=== PATIENT | male | born 2000 | race Caucasian/White ===

== ENCOUNTER 2021-09-05 14:09 | Outpatient (REF) | payer BC, SELFPAY ==
[2021-09-06 18:09] LABS: COVID-19 RT-PCR UVMMC Result Negative (Negative)
== END 2021-09-05 14:10 | disposition home or self-care (01) ==
LOC: LBN 14:09
PROVIDERS: PCP Nurse Practitioner Family; Visit Provider Nurse Practitioner Family
DX: Z20.822 Contact with and (suspected) exposure to COVID-19 (principal)
CPT/HCPCS: U0003

== ENCOUNTER 2021-12-30 01:36 | Emergency (ER) | payer BC, SELFPAY ==
[2021-12-30 01:43] VITALS: BP 142/104; PULSE 92; RESP 18; TEMP 36.1; O2SAT 99
--- NOTE | 2021-12-30 03:00 | W.ED.GENAD ---
Discharge Plan Disposition Patient Disposition: HOME Condition: Stable Discharge Details Clinical Impression: Difficulty sleeping, Anxiety Primary Care Provider: Garry Delgado ED Provider: Tashi Montoya Home Meds and New Rx's Prescriptions: Continued ibuprofen 800 mg tablet 800 mg PO TID PRN (Reason: pain) Qty: 30 0RF Discharge Instructions Additional Instructions: follow up with your primary care provider within 1-2 weeks do not drink alcohol if you take the lorazepam. You can take one at bedtime as needed for anxiety/difficulty sleepin if you feel more ill, have difficulty breathing or severe pain return to the emergency department Stand Alone Forms: Work Release Medical Decision Making 21 yo male who denies chronic medical problems comes in with cc of feeling anxious and not being able to sleep for the past two nights. He says he has had increased stress with college and last night was unable to sleep all night because his mind kept racing. He then again went to bed tonight and his mind starting racing and he started pacing aroud the room because he was feeling anxious and began to breathe fast. Denies any chest pain, fevers, chills, alcohol or drug use. Denies si/hi or depression. He arrives stable, sitting in no distress though appears mildly anxious on exam. He has no focal neuro deficits, CN II-XII intact and clear speech. HIs symptoms seem consistent with anxiety/panic attack and likely compounded by not sleeping, given reassuring exam and vitals do not suspect underlying medical cause for his symptoms such as infectious or endocrine abnormality. Will treat with po ativan and reassess. pt feeling much better requesting d/c. Feel this is reasonable and will provide 3 tabs in case he has trouble sleeping the next few nights until he can see his pcp to discuss further treatment of his anxiety and difficulty sleeping. Differential Diagnosis Differential Diagnosis: anxiety, insomnia HPI General Mode of arrival: ambulatory. Date/Time Provider Initiated Documentation: 12/30/21 01:38. Limitations to Documentation: no limitations. Information obtained by: patient. History of Present Illness 21 year old M presents to the emergency department with the chief complaint of anxious, not sleeping, described as moderate, Patient started experiencing this day(s) (2) and it has been constant. improves with No relieving factors improve symptom(s), No exacerbating factors reported . Patient notes no other symptoms.. Patient did receive the following treatments prior to arrival, none Related Data Home Medications Medication Instructions Recorded Confirmed ibuprofen 800 mg tablet 800 mg PO TID PRN #30 tab 01/31/21 12/30/21 Previous Rx's Medication Instructions Recorded ibuprofen 800 mg tablet 800 mg PO TID PRN #30 tab 01/31/21 Allergies Allergy/AdvReac Type Severity Reaction Status Date / Time cephalexin Allergy Intermediate rash and Verified 12/30/21 01:53 hives hepatitis A virus vaccine Allergy Unknown Skin Rash Verified 12/30/21 01:53 HPV Quardrivalent Allergy Unknown Hives Uncoded 12/30/21 01:53 General Stated Complaint: GenMedical BAILEE: 4 Review of Systems All systems reviewed & are unremarkable except as noted in HPI and below Constitutional Constitutional: Denies chills, Denies fever(s) and Denies weakness Eyes Eyes: Denies loss of vision Cardiovascular Cardiovascular: Denies chest pain and Denies dyspnea Respiratory Respiratory: Denies cough and Denies dyspnea Gastrointestinal Gastrointestinal: Denies abdominal pain, Denies nausea and Denies vomiting Integumentary/Breasts Skin/Breast: Denies rash Neurologic Neurologic: Denies loss of vision and Denies weakness Psychiatric Psychiatric: Denies depression Endocrine Endocrine: Denies cold intolerance and Denies heat intolerance PFSH All Active Problems (Updated 12/30/21 @ 03:40 by Tashi Montoya MD) Difficulty sleeping (Acute) Anxiety (Chronic) Back pain (Acute) Diarrhea (Acute) Scoliosis (Acute) MANI positive (Acute) Medical History (Updated 12/30/21 @ 03:40 by Tashi Montoya MD) Low back strain (~03/01/19) L Lumbar muscle hypertrophy Surgical History (Updated 11/13/20 @ 18:35 by Barb Ramírez) Hx of circumcision Social History (Updated 10/30/20 @ 09:28 by Kym Max) Smoking/Tobacco Use Status: Never Second Hand Exposure: Yes Smoking risk assessment performed?: Yes Alcohol Intake: current Alcohol Intake frequency: a few times a month Alcohol type: hard liquor Drug use: Current Sobriety Substance use type: marijuana Details: No Pot since summer Caregiver/Support person: No Household members: family Housing: house Communication Needs: None Do you need help understanding health information?: Rarely Pets and animals: Yes Pets and animals: cat(s) Sexually active: No Current gender identity: male What is your relationship status?: never How often do you talk on the phone with friends or family?: three or more times per week How often do you get together with friends or relatives?: never Do you belong to any clubs or organized social groups?: no Panel score (0-1 are the most socially isolated patients): 1 What type of physical activity do you participate in: weight lifting Duration: 45-60 minutes/day Frequency: 3-4 times per week Giuliana/Anabaptist: None Seatbelt use: always Helmet use: Yes Helmet use: always 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 Do you feel safe at home: Yes Do you feel safe in your relationship?: Yes Victim of physical abuse: No Victim of emotional abuse: No Victim of sexual abuse: No Would you like helpful sources: No Exam Const General: no acute distress Orientation: alert HENMT Head: normal to inspection Ears: external ears normal General nose exam: external nose normal Mouth: moist mucous membranes Eyes General: appearance normal, both eyes and all related structures Neck Neck: normal visual inspection Resp Effort & Inspection: normal respiratory effort and able to speak in complete sentences Cardio Rate: regular rate Skin General skin exam: no rashes or lesions noted Neuro General: patient alert and patient oriented x3 Extrem General: normal to inspection Psych Mental Status: mental status grossly normal Course Vital Signs Vital signs: Vital Signs Temperature 36.1 C L 12/30/21 01:43 Pulse 92 H 12/30/21 01:43 Respiratory Rate 18 12/30/21 01:43 Blood Pressure 142/104 H 12/30/21 01:43 Pulse Oximetry 99 12/30/21 01:43 Temperature 36.1 C L 12/30/21 01:43 Temperature Source Skin 12/30/21 01:43 Pulse 92 H 12/30/21 01:43 Respiratory Rate 18 12/30/21 01:43 Respiratory Effort Non-Labored 12/30/21 01:54 Blood Pressure 142/104 H 12/30/21 01:43 Blood Pressure Position Sitting 12/30/21 01:43 Pulse Oximetry 99 12/30/21 01:43 Oxygen Delivery Method Room Air 12/30/21 01:43 Oxygen Flow Rate 0 12/30/21 01:43 Pain Level 0 12/30/21 01:43
[2021-12-30] MEDS: LORazepam 1 MG TAB PO (03:07)
[2021-12-30 03:08] VITALS: BP 127/99; PULSE 86; RESP 16; O2SAT 96
[2021-12-30 03:50] VITALS: BP 125/52
[2021-12-30] MEDS: LORazepam 1 MG TAB 3 MG PO (03:50)
== END 2021-12-30 03:52 | disposition home or self-care (01) ==
PROVIDERS: Emergency Provider Emergency Medicine; PCP Nurse Practitioner Family
DX: G47.09 Other insomnia (principal); F41.9 Anxiety disorder, unspecified
CPT/HCPCS: 99283

== ENCOUNTER 2022-02-25 03:13 | Emergency (ER) | payer BC, SELFPAY ==
[2022-02-25 03:17] VITALS: BP 129/94; PULSE 89; RESP 19; TEMP 36.5; O2SAT 99
--- NOTE | 2022-02-25 03:36 | W.ED.GENAD ---
Discharge Plan Disposition Patient Disposition: HOME Condition: Improving Discharge Details Clinical Impression: Cough, Acute viral syndrome Primary Care Provider: Garry Delgado ED Provider: Rickie Montaño Home Meds and New Rx's Prescriptions: New benzonatate 100 mg capsule 100 mg PO BID PRN (Reason: cough) 3 Days Qty: 6 0RF No Action ibuprofen 800 mg tablet 800 mg PO TID PRN (Reason: pain) Qty: 30 0RF sertraline 25 mg tablet 25 mg PO DAILY Qty: 30 0RF Discharge Instructions Instructions: Acute Cough (ED) Additional Instructions: Ensure the stay hydrated at home. Treat fevers and body aches with ibuprofen and acetaminophen if they develop. Return to the emergency department for worsening symptomatology such as shortness of breath productive cough fevers chills uncontrolled nausea or vomiting Medical Decision Making 21-year-old male presents with 1 day of dry cough, nonproductive, sick contacts at home, afebrile nontoxic not hypoxic, speaking full sentences, lungs clear bilaterally, likely viral upper respiratory infection versus less likely bacterial pneumonia versus allergies. Low suspicion for ACS CHF PE or aortic pathology. Dexamethasone Tessalon Perles albuterol ipratropium Home care instructions and return precautions given. HPI General Date/Time Provider Initiated Documentation: 02/25/22 03:28. HPI Narrative: 21-year-old male presents with 1 day of dry cough, sick contact friend at home tested negative for COVID, nonproductive cough, denies fevers chills nausea vomiting or other systemic symptoms. Related Data Home Medications Medication Instructions Recorded Confirmed ibuprofen 800 mg tablet 800 mg PO TID PRN #30 tab 01/31/21 02/25/22 sertraline 25 mg tablet 25 mg PO DAILY #30 tab 01/30/22 02/25/22 benzonatate 100 mg capsule 100 mg PO BID PRN 3 Days #6 cap 02/25/22 Previous Rx's Medication Instructions Recorded ibuprofen 800 mg tablet 800 mg PO TID PRN #30 tab 01/31/21 sertraline 25 mg tablet 25 mg PO DAILY #30 tab 01/30/22 benzonatate 100 mg capsule 100 mg PO BID PRN 3 Days #6 cap 02/25/22 Allergies Allergy/AdvReac Type Severity Reaction Status Date / Time cephalexin Allergy Intermediate rash and Verified 02/25/22 03:20 hives hepatitis A virus vaccine Allergy Unknown Skin Rash Verified 02/25/22 03:20 HPV Quardrivalent Allergy Unknown Hives Uncoded 02/25/22 03:20 General Stated Complaint: RespSymp BAILEE: 3 Review of Systems Narrative: Review of Systems Constitutional: negative Eyes: negative ENT: negative Cardiovascular: negative Respiratory: Cough Gastrointestinal: negative : negative Musculoskeletal: negative Skin: negative Neurologic: negative Psych: negative PFSH All Active Problems (Updated 02/25/22 @ 03:39 by Rickie Montaño MD) Cough (Acute) Acute viral syndrome (Acute) Back pain (Acute) Diarrhea (Acute) Scoliosis (Acute) MANI positive (Acute) Medical History (Updated 02/25/22 @ 03:39 by Rickie Montaño MD) Low back strain (~03/01/19) L Lumbar muscle hypertrophy Surgical History (Updated 11/13/20 @ 18:35 by Barb Ramírez) Hx of circumcision Social History (Updated 10/30/20 @ 09:28 by Kym Max) Smoking/Tobacco Use Status: Never Second Hand Exposure: Yes Smoking risk assessment performed?: Yes Alcohol Intake: current Alcohol Intake frequency: a few times a month Alcohol type: hard liquor Drug use: Current Sobriety Substance use type: marijuana Details: No Pot since summer Caregiver/Support person: No Household members: family Housing: house Communication Needs: None Do you need help understanding health information?: Rarely Pets and animals: Yes Pets and animals: cat(s) Sexually active: No Current gender identity: male What is your relationship status?: never How often do you talk on the phone with friends or family?: three or more times per week How often do you get together with friends or relatives?: never Do you belong to any clubs or organized social groups?: no Panel score (0-1 are the most socially isolated patients): 1 What type of physical activity do you participate in: weight lifting Duration: 45-60 minutes/day Frequency: 3-4 times per week Giuliana/Cheondoism: None Seatbelt use: always Helmet use: Yes Helmet use: always Drive intox or ride w/intox 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 Do you feel safe at home: Yes Do you feel safe in your relationship?: Yes Victim of physical abuse: No Victim of emotional abuse: No Victim of sexual abuse: No Would you like helpful sources: No Exam Narrative Exam Narrative: Physical Examination General: alert, awake, cooperative, resting comfortably, no acute distress HEENT: normocephalic, atraumatic; PERRL, EOM intact, conjunctiva normal; no nasal discharge; moist mucous membranes, oral and pharyngeal mucosa normal, tolerating secretions Neck: supple, trachea midline; full ROM Chest: normal to inspection Respiratory: Dry cough; normal respiratory effort, speaking in full sentences, clear to auscultation, no wheezing, rales or rhonchi Cardiac: regular rate, regular rhythm, S1S2 intact, no murmurs rubs or gallops GI: abdomen soft, non-tender, non-distended; no palpable mass or hepatosplenomegaly Skin: no lesions, rashes or trauma appreciated Neuro: AAOx3, normal speech, moving all extremities Psych: Appropriate mood and affect Course Vital Signs Vital signs: Vital Signs Temperature 36.5 C 02/25/22 03:17 Pulse 89 02/25/22 03:17 Respiratory Rate 19 02/25/22 03:17 Blood Pressure 129/94 H 02/25/22 03:17 Pulse Oximetry 99 02/25/22 03:17 Temperature 36.5 C 02/25/22 03:17 Temperature Source Tympanic 02/25/22 03:17 Pulse 89 02/25/22 03:17 Respiratory Rate 19 02/25/22 03:17 Respiratory Effort 02/25/22 03:28 Respiratory Depth Normal 02/25/22 03:28 Blood Pressure 129/94 H 02/25/22 03:17 Blood Pressure Position Sitting 02/25/22 03:17 Pulse Oximetry 99 02/25/22 03:17 Oxygen Delivery Method Room Air 02/25/22 03:17 Oxygen Flow Rate 0 02/25/22 03:17 Pain Level 0 02/25/22 03:17
[2022-02-25] MEDS: Albuterol/Ipratropium 3 ML UPD VIAL UPD (03:42)
[2022-02-25] MEDS: Dexamethasone 10 MG/ML VIAL IVP (03:43)
[2022-02-25] MEDS: Benzonatate 100 MG CAP PO (03:43)
[2022-02-25 04:05] VITALS: BP 126/87; PULSE 73; RESP 18; O2SAT 99
[2022-02-26 13:29] LABS: COVID-19 RT-PCR UVMMC Result Negative (Negative)
== END 2022-02-25 04:12 | disposition home or self-care (01) ==
PROVIDERS: Emergency Provider Emergency Medicine; PCP Nurse Practitioner Family
DX: B34.9 Viral infection, unspecified (principal); R05.1 Acute cough; Z20.822 Contact with and (suspected) exposure to COVID-19
CPT/HCPCS: 94640; 96374; 99283; U0003; J1100; J7620

== ENCOUNTER 2022-02-26 01:32 | Emergency (ER) | payer BC, SELFPAY ==
--- OUTSIDE RECORDS SUMMARY | 2022-02-26 01:35 | XMS_ITS | Encounter Summary ---
:2000 Author Organization [facility] Address [address] [place] [address] Care Team Providers Name Role Phone Wesley Seymour MD Primary Care Provider Encounter Details Date Type Department Care Team Description 02/25/2019 Hospital Encounter [facility] Terell Barry, [place] back [address] [place] [id number] [place] [phone] [address] [place] [address] (Wo rk) Social History Tobacco Use Types Packs/Day Years Used Date Never Assessed Sex Assigned at Date Recorded Not on file documented as of this encounter Plan of Treatment Not on filedocumented as of this encounter Procedures Procedure Name Priority Date/Time Associated Comments Diagnosis US EXTREMITY Routine 02/25/2019 3:07 Mass on back Results for this NONVASCULAR LIMITED PM EDT procedur e are in LEFT the results section. documented in this encounter Results US Extremity [facility] Left (02/25/2019 3:07 PM EDT) Anatomical Region Laterality Modality Ultrasound Specimen (Source) Anatomical Location Collection Method / Collectio n Time Received Time / Laterality Volume Impressions 02/25/2019 3:10 PM EDT IMPRESSION: Asymmetry of the paraspinal muscles with the left more prominent than the right. Please correlate for scoliosis. If desired, MRI could be pursued for further assessment. RADCAT Grade:RADCAT2: Routine result. Signing Doctor: Myke Smith MD ?Date Signed:02/25/2019 3:10 PM Patient ?Ac cession Number:[id number] DOS:02/25/2019 2:31 PM ?Exam: [id number] US EXTREMITY NONVASCULAR LIMITED LEFT Narrative 02/25/2019 3:10 PM EDT HISTORY: Abnormal physical exam findings; prominent soft tissues of the left paraspinal region. TECHNIQUE: Nonvascular sonography of the left extremity. Notably, the examination was tailored to assess the region of concern in the paraspinal region at the level of the thoracolumbar junction. COMPARISON: None. FINDINGS: The left paraspinal muscles are slightly larger than the right without discernible mass, collection or abnormal echogenicity. Procedure Note Myke Smith MD - 02/25/2019Form atting of this note might be different from the original. HISTORY: Abnormal physical exam findings ; prominent soft tissues of the left paraspinal region. TECHNIQUE: Nonvascular sonography of the left extremity. Notably, the examination was tailored to assess the region of concern in the paraspinal region at the level of the thoracolumbar junction. COMPARISON: None. FINDINGS: The left paraspinal muscles are slightly larger than the right without discernible mass, collection or abnormal echogenicity. IMPRESSION: Asymmetry of the paraspinal muscles with the left more prominent than the right. Please correlate for scoliosis. If desired, MRI could be pursued for further assessment. RADCAT Grade:RADCAT2: Routine result. Signing Doctor: Myke Smith MD Date Signed:02/25/2019 3:10 PM Patient Accessi on Number:[id number] DOS:02/25/2019 2:31 PM Exam:[id number] US EXTREMITY NONVASCULAR LIMITED LEFT Terell Seymour MD [facility] ORDERABLES documented in this encounter Visit Diagnoses Diagnosis Mass on back Localized superficial swelling, mass, or lump documented in this encounter Care Teams Ncr Operator Relationship Specialty Start Date End Date Terell Seymour MD PCP - General Pediatrics 08/29/17 [address] [facility] [address] [place] [address] documented as of this encounter
--- OUTSIDE RECORDS SUMMARY | 2022-02-26 01:35 | XMS_ITS | Encounter Summary ---
:2000 Author Organization [facility] Address [address] [id number] Care Team Providers Name Role Phone Wesley Seymour MD Primary Care Provider Encounter Details Date Type Department Care Team Description 08/29/2017 Hospital Encounter [facility] Terell Seymour Family history of diseases o f the blood and blood-forming organs and certain disorders involving the immune mechanism (Primary Dx); [address] [facility] MD Wesley Encounter for screening, unspecified [place] [address] [facility] [place] [address] [address] [place] [address] Social History Tobacco Use Types Packs/Day Years Used Date Never Assessed Sex Assigned at Date Recorded Not on file documented as of this encounter Plan of Treatment Not on filedocumented as of this encounter Procedures Procedure Name Priority Date/Time Associated Comments Diagnosis CHOLESTEROL Routine 08/29/2017 11:59 Family history of Result s for this FRACTIONATION AM EST diseases of the procedure a re in blood and the results blood-forming section. organs and certain disorders involving the immune mechanism Encounter for screening, unspecified ANTI-THYROID PEROXIDASE Routine 08/29/2017 11:59 Family histor y of Results for this ANTIBODY AM EST diseases of the procedure ar e in blood and the results blood-forming section. organs and certain disorders involving the immune mechanism Encounter for screening, unspecified VENIPUNCTURE ONLY Routine 08/29/2017 11:59 Family history of R esults for this AM EST diseases of the procedure ar e in blood and the results blood-forming section. organs and certain disorders involving the immune mechanism Encounter for screening, unspecified THYROGLOBULIN Routine 08/29/2017 11:59 Family history of Resul ts for this AUTOANTIBODIES AM EST diseases of the procedure are in blood and the results blood-forming section. organs and certain disorders involving the immune mechanism Encounter for screening, unspecified CBC NO DIFF WITH Routine 08/29/2017 11:59 Family history of Re sults for this PLATELET AM EST diseases of the procedure ar e in blood and the results blood-forming section. organs and certain disorders involving the immune mechanism Encounter for screening, unspecified MANI Routine 08/29/2017 11:59 Family history of Result s for this AM EST diseases of the procedure ar e in blood and the results blood-forming section. organs and certain disorders involving the immune mechanism Encounter for screening, unspecified TSH Routine 08/29/2017 11:59 Family history of Result s for this AM EST diseases of the procedure ar e in blood and the results blood-forming section. organs and certain disorders involving the immune mechanism Encounter for screening, unspecified T4, FREE Routine 08/29/2017 11:59 Family history of Result s for this AM EST diseases of the procedure ar e in blood and the results blood-forming section. organs and certain disorders involving the immune mechanism Encounter for screening, unspecified documented in this encounter Results Venipuncture Only (08/29/2017 11:59 AM EST) P athologist Signature Venipuncture Done 08/29/2017 [facility] 11:59 AM [facility] Specimen Anatomical Collection Method Collection Time Receive d Time (Source) Location / / Volume Laterality Blood 08/29/2017 11:59 08/29/2017 AM EST 11:59 AM EST Terell Seymour MD LAB BLOOD ORDERABLES Performing Organization Address City/State/ZIP Code Phon e Number [facility] [address] [place] [address] Cholesterol Fractionation (08/29/2017 11:59 AM EST) P athologist Signature Cholesterol 119 0 - 169 08/29/2017 [facility] MG/DL 6:43 PM [facility] Comment: Pediatric Cholesterol Interpretation: Desirable: <170 ??Borderline:170-199 ??H igh >199 Triglycerides 97 0 - 149 MG/DL 08/29/2017 6:43 PM ES T [facility] Comment: Pediatric Triglyceride Interpretation: Desirable <150 ??Borderline 150-300 ??Hi gh >300 HDL 52 40 - 70 MG/DL 08/29/2017 6:43 PM EST [facility] Comment: HDL Interpretation: Low Less than 40 ??Desirable greater deirdre n 40 LDL Calculated 48 0 - 109 MG/DL 08/29/2017 6:[address] [facility] Comment: Pediatric LDL Interpretation: Desirable <110 ??Borderline 110-129 ??Hi gh >129 An Accurate calculated LDL is obtained w hen the patient is fasting 12 hours. Cholesterol Total/HDL 2.3 2.0 - 5.0 08/29/2017 6:43 P M [facility] EST LABORATORY Hours Fasting 0 Hours 08/29/2017 6:05 PM [facility] EST LABORATORY Specimen Anatomical Collection Method Collection Time Receive d Time (Source) Location / / Volume Laterality Blood 08/29/2017 11:59 08/29/2017 AM EST 6:03 PM EST Terell Seymour MD LAB BLOOD ORDERABLES Performing Organization Address [facility] Phon e Number [facility] [address] [place] [address] Anti-Thyroid Peroxidase Antibody (08/29/2017 11:59 AM EST) P athologist Signature Thyroid 36.2 1.0 - 60.0 08/29/2017 [facility] Peroxidase Abs IU/ML 7:00 PM EST HOSPITAL [facility] Specimen Anatomical Collection Method Collection Time Receive d Time (Source) Location / / Volume Laterality Blood 08/29/2017 11:59 08/29/2017 AM EST 6:03 PM EST Terell Seymour MD LAB BLOOD ORDERABLES Performing Organization Address [facility]/ZIP [facility] Phon e Number [facility] [address] [place] [address] Thyroglobulin Autoantibodies (08/29/2017 11:59 AM EST) Analysis Performed At Patho logist Time Signature Thyroglobulin Ab 20.2 0.0 - 60.0 08/30/2017 [facility] U/ML 10:17 AM EST HOSPITAL [facility] Specimen Anatomical Collection Method Collection Time Receive d Time (Source) Location / / Volume Laterality Blood 08/29/2017 11:59 08/29/2017 AM EST 6:03 PM EST Terell Seymour MD LAB BLOOD ORDERABLES Performing Organization Address [facility] Phon e Number [facility] [address] [place] [address] TSH (08/29/2017 11:59 AM EST) athologist Signature TSH, High 0.719 0.350 - 08/29/2017 [facility] Sensitivity 5.500 7:00 PM [facility] uIU/ML LABORATORY Specimen Anatomical Collection Method Collection Time Receive d Time (Source) Location / / Volume Laterality Blood 08/29/2017 11:59 08/29/2017 AM EST 6:03 PM EST Terell Seymour MD LAB BLOOD ORDERABLES Performing Organization Address City/[facility] Code Phon e Number [facility] [address] [place] [address] T4, Free (08/29/2017 11:59 AM EST) athologist Signature T4, Free 1.21 0.80 - 1.80 08/29/2017 [facility] NG/DL 7:00 PM [facility] Specimen Anatomical Collection Method Collection Time Receive d Time (Source) Location / / Volume Laterality Blood 08/29/2017 11:59 08/29/2017 AM EST 6:03 PM EST Terell Seymour MD LAB BLOOD ORDERABLES Performing Organization Address [facility] Code Phon e Number [facility] [address] [place] [address] (ABNORMAL) MANI (08/29/2017 11:59 AM EST) [facility] gist Method Time Signature Antinuclear REACTIVE (A) Non 09/01/2017 [facility] Antibodies Reactive 2:25 PM [facility] (MANI[facility] MANI Pattern SPECKLED (A) 09/01/2017 [facility] 2:25 PM [facility] Comment: A speckled pattern is suggestive of auto antibodies to Sm, DARKROOM TECHNICIAN, Scl-70, SSA, SSb, or other extractable n uclear antigens. MANI Titer 1:640 (A) <1:40 09/01/2017 2:25 PM EST T [facility] Specimen Anatomical Collection Method Collection Time Receive d Time (Source) Location / / Volume Laterality Blood 08/29/2017 11:59 08/29/2017 AM EST 6:03 PM EST Terell Seymour MD LAB BLOOD ORDERABLES Performing Organization Address City/[facility]/ZIP Code Phon e Number [facility] [address] [place] [address] CBC No Diff (08/29/2017 11:59 AM EST) P athologist Signature WBC 5.4 3.5 - 11.0 08/29/2017 [facility] [id number] 6:37 PM [facility] RBC 5.00 4.00 - 5.30 08/29/2017 [facility] [id number] 6:37 PM [facility] Hemoglobin 15.0 13.5 - 16.0 08/29/2017 [facility] G/DL 6:37 PM [facility] Hematocrit 45.1 37.0 - 47.0 08/29/2017 [facility] % 6:37 PM [facility] MCV 90.3 80.0 - 98.0 08/29/2017 [facility] fL 6:37 PM [facility] MCH 30.1 26.0 - 34.0 08/29/2017 [facility] PG 6:37 PM [facility] MCHC 33.3 32.0 - 36.0 08/29/2017 [facility] G/DL 6:37 PM [facility] RDW 13.4 11.5 - 14.5 08/29/2017 [facility] % 6:37 PM [facility] Platelets 190 150 - 400 08/29/2017 [facility] [id number] 6:37 PM [facility] MPV 10.2 7.4 - 10.4 08/29/2017 [facility] fL 6:37 PM [facility] Specimen Anatomical Collection Method Collection Time Receive d Time (Source) Location / / Volume Laterality Blood 08/29/2017 11:59 08/29/2017 AM EST 6:05 PM EST Terell Seymour MD LAB BLOOD ORDERABLES Performing Organization Address City/State/ZIP Code Phon e Number [facility] [address] [place] [address] documented in this encounter Visit Diagnoses Diagnosis Family history of diseases of the blood and blood-forming organs and certain disorders involving the immune mechanism - Primary Encounter for screening, unspecified documented in this encounter Care Teams Splitter Operator Relationship Specialty Start Date End Date Terell Seymour MD PCP - General Pediatrics 08/29/[address] [place] [address] [address] [place] [address] documented as of this encounter
--- OUTSIDE RECORDS SUMMARY | 2022-02-26 01:35 | XMS_ITS | Clinical Summary ---
:2000 Author Organization [facility] Address [address] [place] [address] Care Team Providers Name Role Phone Wesley Seymour MD Primary Care Provider Social History Tobacco Use Types Packs/Day Years Used Date Never Assessed Sex Assigned at Date Recorded Not on file Plan of Treatment Health Maintenance Due Date Last Done Comments COVID-19 Immunization (1) 2005 HEPATITIS A VACCINES (2 of 2 11/03/2010 05/03/2010 - 2-dose series) HPV VACCINES. (3 - Male 12/03/2013 08/09/2013, 06/02/2013 2-dose series) DTAP/TDAP/TD VACCINES (7 - 05/29/2021 05/29/2011, 4, Td or Tdap) 06/22/2004, Additional history exists Influenza Vaccine (Season 05/20/2022 08/13/2017, 08/14/2016 , Ended) 09/09/2014, Additional history exists ZOSTER VACCINE (1 of 2) 2050 05/08/2009, 06/03/2001 HEPATITIS B VACCINES Completed 09/03/2001, 09/03/2001, 2000, Additional history exists HIB VACCINES Completed 09/03/2001, 09/03/2001, 2000, Additional history exists IPV VACCINES Completed 06/22/2004, 06/03/2001, 2000, Additional history exists MMR VACCINES Completed 06/22/2004, 06/03/2001 VARICELLA VACCINES Completed 05/08/2009, 06/03/2001 MENINGOCOCCAL ACYW VACCINE Completed 06/04/2016, 1 ROTAVIRUS VACCINES Aged Out No longer cj sahu based on patient 's age to complete this topic Insurance Payer Benefit Plan / Subscriber ID Effective Phone Address T ype Group Dates BLUE CROSS BLUE CROSS [id number] 2016-[address] [place] [address] Advance Directives For more information, please contact: [phone] Documents on File Type Date Recorded 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
[2022-02-26 01:36] VITALS: BP 119/106; PULSE 98; RESP 18; TEMP 37.4; O2SAT 97
--- NOTE | 2022-02-26 01:45 | DI.RAD_ITS ---
Exam(s) XR PORTABLE CHEST AP EXAM: XR PORTABLE CHEST AP CLINICAL HISTORY: cough. TECHNIQUE: 2D digital imaging was performed. COMPARISON: No exams were available for comparison FINDINGS: Single AP portable view. Heart size is upper normal. The mediastinum is not widened. Lungs are clear. No infiltrates nor obvious pleural effusions. IMPRESSION: No acute pulmonary findings on this single AP portable view of the chest. DATA REPOSITORY: RADIATION DOSE DELIVERED: All CT scans at this facility use at least one of these dose optimization techniques: automated exposure control; mA and/or kV adjustment per patient size (includes targeted e xams where dose is matched to clinical indication); or iterative reconstruction.
--- NOTE | 2022-02-26 02:04 | ED.GENADUL_ITS ---
Discharge Plan Disposition Patient Disposition: HOME Condition: Improving Discharge Details Clinical Impression: Cough Primary Care Provider: Garry Delgado ED Provider: Rickie Montaño Home Meds and New Rx's Prescriptions: New albuterol sulfate 90 mcg/actuation HFA aerosol inhaler 2 puff inhalation Q6H PRN (Reason: shortness of breath or wheezing) Qty: 6.7 0RF No Action ibuprofen 800 mg tablet 800 mg PO TID PRN (Reason: pain) Qty: 30 0RF sertraline 25 mg tablet 25 mg PO DAILY Qty: 30 0RF benzonatate 100 mg capsule 100 mg PO BID PRN (Reason: cough) 3 Days Qty: 6 0RF Discharge Instructions Instructions: Acute Cough (ED) Additional Instructions: Please follow-up with primary care physician. Please use medications as needed for symptoms. Return to the emergency department for any worsening symptomatology such as worsening shortness of breath worsening cough fevers chills or other Medical Decision Making 21-year-old male presents for persistent dry cough over the past 2 days. Afebrile nontoxic no respiratory stress lungs clear bilaterally speaking full sentences, dry cough on examination COVID swab still pending. Given bounce back will obtain chest x-ray. Likely viral syndrome. Low suspicion for bacterial pneumonia or pneumothorax. Low suspicion for cardiogenic process trial of nebs. Patient was given steroids yesterday that are likely still in his system given long-acting dexamethasone. Shalom Angela prescribed for home. 2: 50 patient resting comfortably no acute distress; normoxic nontachycardic, lungs clear. Patient screened for any smoke exposure denies smoking elation denies any new environmental exposures, lives at college with 5 roommates denies smoking in the house. Given home care instructions and return precautions. Consider atypical cough type asthma versus environmental allergen exposure versus more likely viral upper respiratory syndrome. HPI General Date/Time Provider Initiated Documentation: 02/26/22 01:37 . HPI Narrative: 21-year-old male presents with persistent cough for the last 2 days endorses is bringing up some mucus. No fevers no chills no nausea no vomiting. Related Data Home Medications Medication Instructions Recorded Confirmed ibuprofen 800 mg tablet 800 mg PO TID PRN #30 tab 01/31/21 02/25/22 sertraline 25 mg tablet 25 mg PO DAILY #30 tab 01/30/22 02/25/22 benzonatate 100 mg capsule 100 mg PO BID PRN 3 Days #6 cap 02/25/22 albuterol sulfate 90 mcg/actuation 2 puff INHALATION Q6H PRN #6.7 g 02/26/22 aerosol inhaler Previous Rx's Medication Instructions Recorded ibuprofen 800 mg tablet 800 mg PO TID PRN #30 tab 01/31/21 sertraline 25 mg tablet 25 mg PO DAILY #30 tab 01/30/22 benzonatate 100 mg capsule 100 mg PO BID PRN 3 Days #6 cap 02/25/22 albuterol sulfate 90 mcg/actuation 2 puff INHALATION Q6H PRN #6.7 g 02/26/22 aerosol inhaler Allergies Allergy/AdvReac Type Severity Reaction Status Date / Time cephalexin Allergy Intermediate rash and Verified 02/25/22 03:20 hives hepatitis A virus vaccine Allergy Unknown Skin Rash Verified 02/25/22 03:20 HPV Quardrivalent Allergy Unknown Hives Uncoded 02/25/22 03:20 General Stated Complaint: RespSymp BAILEE: 4 Review of Systems Narrative: Review of Systems Constitutional: negative Eyes: negative ENT: negative Cardiovascular: negative Respiratory: Cough Gastrointestinal: negative : negative Musculoskeletal: negative Skin: negative Neurologic: negative Psych: negative PFSH All Active Problems (Updated 02/26/22 @ 02:52 by Rickie Montaño MD) Cough (Acute) Acute viral syndrome (Acute) Back pain (Acute) Diarrhea (Acute) Scoliosis (Acute) MANI positive (Acute) Medical History (Updated 02/26/22 @ 02:52 by Rickie Montaño MD) Low back strain (~03/01/19) L Lumbar muscle hypertrophy Surgical History (Updated 11/13/20 @ 18:35 by Barb Ramírez) Hx of circumcision Social History (Updated 10/30/20 @ 09:28 by Kym Max) Smoking/Tobacco Use Status: Never Second Hand Exposure: Yes Smoking risk assessment performed?: Yes Alcohol Intake: current Alcohol Intake frequency: a few times a month Alcohol type: hard liquor Drug use: Current Sobriety Substance use type: marijuana Details: No Pot since summer Caregiver/Support person: No Household members: family Housing: house Communication Needs: None Do you need help understanding health information?: Rarely Pets and animals: Yes Pets and animals: cat(s) Sexually active: No Current gender identity: male What is your relationship status?: never How often do you talk on the phone with friends or family?: three or more times per week How often do you get together with friends or relatives?: never Do you belong to any clubs or organized social groups?: no Panel score (0-1 are the most socially isolated patients): 1 What type of physical activity do you participate in: weight lifting Duration: 45-60 minutes/day Frequency: 3-4 times per week Giuliana/Buddhist: None Seatbelt use: always Helmet use: Yes Helmet use: always Drive intox or ride w/intox patient transportation driver: No Do you feel safe at home: Yes Do you feel safe in your relationship?: Yes Victim of physical abuse: No Victim of emotional abuse: No Victim of sexual abuse: No Would you like helpful sources: No Exam Narrative Exam Narrative: Physical Examination General: alert, awake, cooperative, resting comfortably, no acute distress HEENT: normocephalic, atraumatic; PERRL, EOM intact, conjunctiva normal; no nasal discharge; moist mucous membranes, oral and pharyngeal mucosa normal, tolerating secretions Neck: supple, trachea midline; full ROM Chest: normal to inspection Respiratory: Dry cough; normal respiratory effort, speaking in full sentences, clear to auscultation, no wheezing, rales or rhonchi Cardiac: regular rate, regular rhythm, S1S2 intact, no murmurs rubs or gallops GI: abdomen soft, non-tender, non-distended; no palpable mass or hepatosplenomegaly Skin: no lesions, rashes or trauma appreciated Neuro: AAOx3, normal speech, moving all extremities Psych: Appropriate mood and affect Course Vital Signs Vital signs: Vital Signs Temperature 37.4 C 02/26/22 01:36 Pulse 98 H 02/26/22 01:36 Respiratory Rate 18 02/26/22 01:36 Blood Pressure 119/106 H 02/26/22 01:36 Pulse Oximetry 97 02/26/22 01:36 Temperature 37.4 C 02/26/22 01:36 Temperature Source Tympanic 02/26/22 01:36 Pulse 98 H 02/26/22 01:36 Respiratory Rate 18 02/26/22 01:36 Respiratory Effort 02/26/22 01:40 Blood Pressure 119/106 H 02/26/22 01:36 Blood Pressure Position Sitting 02/26/22 01:36 Pulse Oximetry 97 02/26/22 01:36 Oxygen Delivery Method Room Air 02/26/22 01:36 Oxygen Flow Rate 0 02/26/22 01:36 Pain Level 0 02/26/22 01:36
[2022-02-26 02:09] VITALS: PULSE 79; RESP 1; RESP 18; O2SAT 98
[2022-02-26] MEDS: Albuterol/Ipratropium 3 ML UPD VIAL UPD (02:09)
--- NOTE | 2022-02-26 02:44 | DI.VRAD_ITS ---
PROCEDURE INFORMATION: Exam: XR Chest Exam date and time: 02/26/2022 1:53 AM Age: 21 years old Clinical indication: Cough TECHNIQUE: Imaging protocol: XR of the chest. Views: 1 view. COMPARISON: No relevant prior studies available. FINDINGS: Lungs: Unremarkable. No consolidation. Pleural spaces: Unremarkable. No pleural effusion. No pneumothorax. Heart/Mediastinum: Unremarkable. No cardiomegaly. Bones/joints: Unremarkable. IMPRESSION: No acute findings. Dictated and Authenticated by: Tashi Rm MD. Ordering:SHINE Damian MD
== END 2022-02-26 02:58 | disposition home or self-care (01) ==
PROVIDERS: Emergency Provider Emergency Medicine; PCP Nurse Practitioner Family
DX: R05.1 Acute cough (principal); B34.9 Viral infection, unspecified; Z20.822 Contact with and (suspected) exposure to COVID-19
CPT/HCPCS: 94640; 96374; 99283; 99284; 71045; J7620